=== PATIENT | female | born 1940 | race Hispanic/Latino ===

== ENCOUNTER 2020-05-28 06:30 | Day surgery (SDC) | payer OTHER, MEDICARE ==
[2020-05-28] MEDS ORDERED: ASPIRIN EC 325 MG TAB PO SCH (07:30)
[2020-05-28 07:41] LABS: Basophils # (Auto) 0.1 K/mm3 (0.0-0.1); Basophils % (Auto) 1.1 % (0.0-1.8); Eosinophils # (Auto) 0.2 K/mm3 (0.0-0.4); Eosinophils % (Auto) 4.4 % (0.0-4.3); Hematocrit 41.4 % (30.3-42.9); Hemoglobin 14.2 gm/dl (10.1-14.3); Lymphocytes # (Auto) 1.8 K/mm3 (1.2-5.4); Mean Corpuscular HGB Conc 34 % (30-34); Mean Corpuscular Volume 89 fl (79-97); Monocytes # (Auto) 0.7 K/mm3 (0.0-0.8); Monocytes % (Auto) 13.8 % (0.0-7.3); Platelet Count 302 K/mm3 (140-440); Red Blood Count 4.67 M/mm3 (3.65-5.03); Red Cell Distribution Width 13.6 % (13.2-15.2)
[2020-05-28 07:50] LABS: INR 0.9 (0.87-1.13); Partial Thromboplastin Time 26.3 Sec. (24.2-36.6)
[2020-05-28 07:52] LABS: Blood Urea Nitrogen 9 mg/dL (7-17); Calcium 9.2 mg/dL (8.4-10.2); Hemolysis Index 4
[2020-05-28] MEDS ORDERED: SODIUM CHLORIDE 0.9% 500 ML 500 ML IV SCH (08:00)
[2020-05-28] MEDS ORDERED: HEPARIN/NS 5000 UNIT/500ML 1,000 ML IR ONE (08:03)
[2020-05-28 08:09] LABS: BUN/Creatinine Ratio 15
[2020-05-28] MEDS ORDERED: HEPARIN 10,000 UNITS/10 ML VIAL ONE (08:17)
[2020-05-28] MEDS ORDERED: VERAPAMIL 5 MG/2 ML INJ ONE (08:18)
[2020-05-28] MEDS ORDERED: MIDAZOLAM 2 MG/2 ML INJ ONE (08:18)
[2020-05-28] MEDS ORDERED: fentaNYL 100 MCG/2 ML INJ ONE (08:18)
[2020-05-28] MEDS ORDERED: LIDOCAINE (2%) 20 MG/1 ML VIAL 20 ML MDV INFILTRATI ONE ×3 (08:18→09:06)
[2020-05-28] MEDS ORDERED: NITROGLYCERIN SYRINGE 3 ML ONE (08:19)
[2020-05-28] MEDS ORDERED: ATROPINE 0.1% (1 MG/10 ML) CARDIAC SYRINGE ONE (08:20)
[2020-05-28] MEDS ORDERED: PHENYLEPHRINE/NS 1,000 MCG/10 ML SYRINGE (OR USE) IV ONE (08:20)
[2020-05-28] MEDS ORDERED: MIDAZOLAM 2 MG/2 ML INJ IV ONE ×2 (08:59→09:24)
[2020-05-28] MEDS ORDERED: fentaNYL 100 MCG/2 ML INJ IV ONE ×2 (08:59→09:25)
[2020-05-28] MEDS ORDERED: HEPARIN 10,000 UNITS/10 ML VIAL IV ONE (09:17)
[2020-05-28] MEDS ORDERED: HEPARIN 2,000 UNIT in SODIUM CHLORIDE 0.9% 500 ML 500 ML IR ONE (09:40)
--- NOTE | 2020-05-28 10:30 | Cardiac Catherization Report ---
LEFT HEART CATHETERIZATION REFERRING PHYSICIAN: Garrett Swann MD INDICATION FOR PROCEDURE: The patient is a very pleasant 80-year-old female here for recurrent chest pain, abnormal stress test, referred for left heart catheterization. Risks, benefits, potential alternatives explained at length prior to obtaining informed consent. PROCEDURE IN DETAIL: The patient was seen by cath lab tech in postabsorptive state, prepped and draped in sterile fashion. Unable to access right radial, she does not have a good pulse there. We changed her groin approach, 6-Armenian sheath placed in right common femoral artery via modified Seldinger technique. All exchanges performed to exchange a J-tip guidewire. JL3.5 catheter used to engage the left main. No dampening or ventricularization. Cineangiography performed in all projections. JR4 catheter was used to cross the aortic valve under fluoroscopic guidance. Left ventriculography performed. [place] projections via hand injections, catheter flushed. Manual pullback performed with continuous pressure monitoring. Catheter used to engage the right coronary. No dampening or ventricularization. Cineangiography performed in all projections. Next, aortic pressure 150/60, LV pressure is 150, LVP of 20 mmHg. Left ventriculography reveals normal systolic performance with estimated ejection fraction of 55-60%. No evidence of aortic stenosis. I directly supervised the administration of fentanyl/versed from 845 to 930am. CORONARY ANATOMY: This is a right dominant system. Left main without significant disease, bifurcates left anterior descending and left circumflex. The LAD is a moderate sized vessel, courses anterior intergroove. There are stents in the LAD and diagonal system with minimal in-stent restenosis, 40% mid diagonal stenosis, small vessels. Left circumflex with a 90% stenosis of a large OM1 trunk and the mid segment at the takeoff of a branch, tortuous right coronary with a stent in the proximal segment, small vessel disease distally. We turned our attention to PCI. Heparin is given. Abnormal ACT is confirmed. Using EBU 3.75 guide to engage the left main without difficulty, multiple wires were placed across the lesion. We were unable to advance the balloon or stent. We tried multiple wires likely due to tortuosity. There were no complications. Final angiography reveals BRE 3 flow, no dissection. The patient is chest pain free, clinically stable at this point, will be transferred to [facility] for complex PCI. CONCLUSIONS: 1. Severe single vessel coronary artery disease with 90% OM1 stenosis, very tortuous, unsuccessful PCI despite using multiple balloons and wires, unable to cross the lesion. No complications were identified, BRE 3 flow at the end of procedure. The patient is chest pain. Patent stents in the LAD, diagonal and proximal right coronary noted. 2. Preserved left ventricular systolic performance, estimated ejection fraction of 55-60%. 3. No evidence of aortic stenosis. The patient is already loaded with Plavix and aspirin. Pull sheath once ACT is less than 180, transfer plan is in place. My findings and plan of care discussed at length with the patient as well as family. JOB# [id number] ELEONORA/ZHAO BALTAZAR
--- NOTE | 2020-05-28 10:53 | Short Stay Summary ---
Short Stay Documentation Date of service: 05/28/20 - History H&P: obtained from office - Allergies and Medications Current Medications: Allergies Penicillins Allergy (Verified 10/03/13 07:04) Swelling povidone-iodine [From Betadine] Allergy (Verified 05/28/20 07:19) Rash soap [From Betadine] Allergy (Verified 05/28/20 07:19) Rash Sulfa (Sulfonamide Antibiotics) Allergy (Verified 10/03/13 07:04) Swelling atorvastatin calcium [From Lipitor] Adverse Reaction (Verified 10/03/13 07:57) muscle aching cefadroxil [Cefadroxil] Adverse Reaction (Verified 10/03/13 07:57) Nausea cyclobenzaprine [Cyclobenzaprine] Adverse Reaction (Verified 10/03/13 07:57) Nausea niacin [From Niaspan Extended-Release] Adverse Reaction (Verified 10/03/13 07:57) muscle aching Home Medications Medication Instructions Recorded Confirmed Last Taken Type Clopidogrel Bisulfate [Clopidogrel] 75 mg PO QDAY 10/03/13 05/28/20 05/28/20 History 75 mg Duloxetine HCl [Cymbalta] 60 mg PO BID 10/03/13 05/28/20 05/27/20 History 60 mg Gabapentin [Neurontin] 600 mg PO 4XD 10/03/13 05/28/20 05/27/20 21:00 History 600 mg HYDROcodone/ACETAMINOPHEN 1 tab PO Q6H PRN 10/03/13 05/28/20 05/27/20 History [Hydrocodon-Acetaminophn 10-325] 1 tab Metoprolol Tartrate 25 mg PO QDAY 10/03/13 05/28/20 05/27/20 History 1 tab Multivitamin [Multi-Vitamin Daily] 1 tab PO DAILY 10/03/13 05/28/20 05/27/20 History 1 tab Nitroglycerin [Nitrostat] 0.4 mg SL Q5M PRN 10/03/13 05/28/20 Unknown History Omeprazole [PriLOSEC] 40 mg PO QDAY 10/03/13 01/04/15 05/27/20 History 1 tab Zolpidem [Ambien] 10 mg PO QHS 10/03/13 05/28/20 05/27/20 History 1 tab Aspirin 325 mg PO QDAY #30 tablet 10/04/13 05/28/20 05/28/20 08:00 Rx 325 mg Garlic [Odor Free Garlic] 100 mg PO DAILY 01/04/15 05/28/20 05/27/20 10:00 History 1 tab methocarbamoL [Methocarbamol] 750 mg PO TID 05/28/20 05/28/20 05/27/20 History 1 tab Active Medications Aspirin (Aspirin Ec 325 Mg Tab) 325 mg PO ONCE LALITO Stop: 05/28/20 15:30 Last Admin: 05/28/20 07:58 Dose: 325 mg Documented by: Sodium Chloride (Nacl 0.9% 500 Ml) 500 mls @ 50 mls/hr IV DIRECT LALITO Stop: 05/28/20 17:59 Last Admin: 05/28/20 08:00 Dose: 50 mls/hr Documented by: - Brief post op/procedure progress note Date of procedure: 05/28/20 Pre-op diagnosis: abnormal stress test Post-op diagnosis: other (CAD) Procedure: C with unsuccessful PCI - see dictated cath report Anesthesia: local Estimated blood loss: none Condition: stable - Hospital course Hospital course: pt to tx to [place] for revascularization - Disposition Condition at discharge: Stable Disposition: [id number] ANOTHER TYPE HLTHCARE - Discharge Diagnoses (1) CAD (coronary artery disease) Status: Chronic (2) HTN (hypertension) Status: Chronic (3) Hyperlipidemia Status: Chronic Short Stay Discharge Plan Diet: low fat, low cholesterol, low salt Wound: open to air, keep clean and dry, per your surgeon's advice Follow up with: MINDA SALAS MD [Primary Care Provider] - 7 Days
[2020-05-28] MEDS ORDERED: HYDROcodone/ACETAMINOPHEN 5-325 MG TAB PO NR (11:18)
[2020-05-28 15:42] VITALS: BP 120/47
== END 2020-05-28 13:20 | disposition other institution (70) ==
LOC: CATHLABREC 06:30
PROVIDERS: ATTEND Internal Medicine
DX: R07.89 Other chest pain (principal); R94.39 Abnormal result of other cardiovascular function study; T82.855A Stenosis of coronary artery stent, initial encounter; I25.10 Atherosclerotic heart disease of native coronary artery without angina pectoris; E78.5 Hyperlipidemia, unspecified; I10 Essential (primary) hypertension; F32.9 Major depressive disorder, single episode, unspecified; G43.909 Migraine, unspecified, not intractable, without status migrainosus; K21.9 Gastro-esophageal reflux disease without esophagitis; F41.9 Anxiety disorder, unspecified; Z98.61 Coronary angioplasty status; Z88.8 Allergy status to other drugs, medicaments and biological substances; Z88.2 Allergy status to sulfonamides; Z79.82 Long term (current) use of aspirin; Z79.899 Other long term (current) drug therapy; Z90.49 Acquired absence of other specified parts of digestive tract; Z90.710 Acquired absence of both cervix and uterus; Z90.721 Acquired absence of ovaries, unilateral; Z87.442 Personal history of urinary calculi; Z98.890 Other specified postprocedural states; Z82.49 Family history of ischemic heart disease and other diseases of the circulatory system; Y83.8 Other surgical procedures as the cause of abnormal reaction of the patient, or of later complication, without mention of misadventure at the time of the procedure; Y92.89 Other specified places as the place of occurrence of the external cause
CPT/HCPCS: 36415; 80048; 85025; 85347; 85610; 85730; 92920; 93005; 93458; 99156; 99157; C1769; C1887; C1894; J1644; J2250; J3010; J7040; J0461; J2370; Q9967